=== PATIENT | male | born 1985 | race Caucasian/White ===

== ENCOUNTER 2024-04-02 17:04 | Emergency (ER) | payer OTHER ==
[~2024-04-02] VITALS: Ht 175.3 cm; Wt 83.3 kg
[2024-04-02 17:31] LABS: PH, VENOUS 7.515 (7.31-7.41)
[2024-04-02 17:41] LABS: BASOPHILS 0.9 % (0-2); EOSINOPHILS 1.4 % (0-6); LYMPHOCYTES 33.6 % (24-44); MCH 31.1 (27-36); MONOCYTES 7.9 % (0-12); NEUTROPHILS 56.2 % (39-80); PLATELET COUNT 261 K/uL (140-440); RBC 4.83 M/ul (4.3-5.7); RDW 14.1 (10.5-15.0)
[2024-04-02] MEDS ORDERED: ondansetron HCL 4 MG/2 ML VIAL IV ONE (17:45)
[2024-04-02] MEDS ORDERED: SODIUM CHLORIDE 0.9% 1,000 ML IV ONE (17:45)
[2024-04-02 18:00] LABS: ALBUMIN 4.9 g/dL (3.4-5.0); ALBUMIN/GLOBULIN RATIO 1.44 (1.1-2.4); ANION GAP 21.6 (7-21); BILIRUBIN, TOTAL 0.5 ng/dL (0.2-1.0); BUN/CREATININE RATIO 17.39 (6.0-28.6); CREATININE, SERUM 1.38 mg/dL (0.70-1.30); POTASSIUM 2.6 mmol/L (3.5-5.1); PROTEIN, TOTAL 8.3 g/dL (6.4-8.2)
[2024-04-02] MEDS ORDERED: POTASSIUM CHLORIDE 10 MEQ/100 ML BAG IV SCH (18:30)
[2024-04-02 21:32] LABS: PH, VENOUS 7.375 (7.31-7.41)
[2024-04-02 22:01] LABS: ANION GAP 10.3 (7-21); BUN/CREATININE RATIO 22.58 (6.0-28.6); CALCIUM 8.5 mg/dL (8.5-10.1); CREATININE, SERUM 0.93 mg/dL (0.70-1.30); POTASSIUM 4.3 mmol/L (3.5-5.1)
[2024-04-02 22:36] VITALS: BP 129/60
--- NOTE | 2024-04-04 22:12 | EKG ---
[facility] [address] [place], [place] [address] Signed Sinus bradycardia Otherwise normal ECG No previous ECGs available Confirmed by LUBNA IZQUIERDO MD ([id number] on 04/04/2024 10:12:15 PM Electronically Signed By: LUBNA IZQUIERDO 04/04/242211 PATIENT NAME: TODD PEÑA Electrocardiogram DATE OF : 87 PHYSICIAN: LUBNA IZQUIERDO REPORT #: [id number] REPORT IS CONFIDENTIAL AND NOT TO BE RELEASED WITHOUT AUTHORIZATION
== END 2024-04-02 22:37 | disposition home or self-care (01) ==
LOC: ED 17:04
PROVIDERS: Emergency Medicine; Internal Medicine
DX: T58.91XA Toxic effect of carbon monoxide from unspecified source, accidental (unintentional), initial encounter (principal)
CPT/HCPCS: 36415; 80048; 80053; 82375; 82803; 84484; 85025; 93005; 93010; 96365; 96366; 96375; 99283-25; J2405; J3480; J7030